=== PATIENT | female | born 2000 | race African-American/Black ===

== ENCOUNTER 2024-07-23 10:53 | Emergency (ER) | payer BC ==
[~2024-07-23] VITALS: Ht 167.6 cm; Wt 78.9 kg
[2024-07-23 11:11] VITALS: TEMP 98
[2024-07-23] MEDS ORDERED: LIDOCAINE /MPF 1% VIAL 5 ML VIAL ONE (12:07)
[2024-07-23] MEDS ORDERED: CEFTRIAXONE 1 G VIAL ONE (12:07)
[2024-07-23] MEDS: CEFTRIAXONE 1 G VIAL IM ONE (12:19)
[2024-07-23] MEDS ORDERED: DOXY100C2 PO (13:35)
[2024-07-23 14:41] VITALS: BP 122/64; O2SAT 99
[2024-07-24 19:37] LABS: HIV-1 p24 ANTIGEN NON REACTIVE (NONREACTIVE); HIV-1/2 ANTIBODY NON REACTIVE (NONREACTIVE)
[2024-07-24 21:06] LABS: CHLAMYDIA TRACHOMATIS NAA Negative (Negative); NEISSERIA GONORRHOEAE NAA Negative (Negative)
[2024-07-25 08:10] LABS: RAPID PLASMA REAGIN QUAL. Non Reactive (Non Reactive)
== END 2024-07-23 13:15 | disposition home or self-care (01) ==
LOC: ER 11:56
DX: Z11.3 Encounter for screening for infections with a predominantly sexual mode of transmission (principal); F10.10 Alcohol abuse, uncomplicated; N89.8 Other specified noninflammatory disorders of vagina
CPT/HCPCS: 99283; 86593; 86592; 36415; 87806; 87491; 87591; J0696; J3490

== ENCOUNTER 2024-08-04 19:00 | Emergency (ER) | payer BC ==
[~2024-08-04] VITALS: Ht 167.6 cm; Wt 80.7 kg
[~2024-08-04 19:00] MED LIST: DOXY100C2 PO
[2024-08-04 19:05] VITALS: BP 150/82; TEMP 98.6; O2SAT 99
== END 2024-08-04 22:12 | disposition home or self-care (01) ==
LOC: ER 19:10
DX: R10.2 Pelvic and perineal pain (principal); M79.10 Myalgia, unspecified site; Z79.2 Long term (current) use of antibiotics